=== PATIENT | female | born 1930 | race Caucasian/White ===

== ENCOUNTER 2017-01-29 09:44 | Emergency (ER) | payer OTHER, BC ==
--- NOTE | 2017-01-29 10:38 | DIAGNOSTIC IMAGING REPORT ---
PROCEDURE: XR ABDOMEN 1 VIEW INDICATION: NAUSEA TECHNIQUE: AP supine and upright views. COMPARISON: None. FINDINGS: Large hiatal hernia. Bowel pattern is normal. Soft tissues and osseous structures are normal. IMPRESSION: 1. Large right paramedian hiatal hernia.
--- NOTE | 2017-01-29 12:50 | ED NURSING NOTES ---
Clinical Report - Nurses [address] [place] [address] 01/29/2017 9:49 Patient: NEELAM DEAL TRIAGE Acuity: LEVEL 3. Chief Complaint: NAUSEA. Alert. No acute distress. SEPSIS SCREEN: Sepsis Screen. Negative (no infection suspected/documented). --10:08 Jaqui Farris R.N. 09:53 01/29/17. BP: 169/99. HR: 55. RR: 18. O2 saturation: 100%. Temp: 97.7 F (oral). Pain level now: 0/10. --10:08 Jaqui Farris R.N. Weight: 74.8 kg estimated. Height/Length: 66 inches Estimated. BMI: 26.6. --10:02 Jaqui Farris R.N. Medications Metoprolol Tartrate Oral 50 mg, daily. --09:54 Jaqui Farris R.N. Clopidogrel Bisulfate Oral 75 mg, daily. --09:55 Jaqui Farris R.N. Ferrous Sulfate Oral. --09:55 Jaqui Farris R.N. Simvastatin Oral 10 mg, at bedtime. --09:55 Jaqui Farris R.N. Lisinopril Oral 2.5 mg, 2x a day. --09:55 Jaqui Farris R.N. Montelukast Sodium Oral 10 mg, daily. --09:55 Jaqui Farris R.N. Aspirin Oral (Tablet 325 mg). --09:56 Jaqui Farris R.N. Medication/allergy information source: the patient's senior care record. --10:08 Jaqui Farris R.N. Allergies No Known Drug Allergy. --09:56 Jaqui Farris R.N. History Arrived by EMS. Historian: patient. Unaccompanied. Primary physician (Habib at [facility]). Onset. (2 days ago). No vomiting, constipation, abdominal pain or fever. Last oral intake by patient was breakfast. Treatment APPEALS MANAGER: None. EMS treatment APPEALS MANAGER verbally communicated. Finger stick glucose performed (95). BP: 134/92. HR: 60. RR: 18. Temp: 96.9. O2 saturation: 96 room air. PAST MEDICAL HX: The patient has had a hysterectomy. SOCIAL HX: Former smoker, end date 2001. Occasional alcohol use. No drug use. No recent travel. NUTRITIONAL RISK ASSESSMENT: The nutritional risk assessment revealed no deficiencies. LEARNING NEEDS ASSESSMENT: The learning needs assessment revealed no barriers. FALL RISK ASSESSMENT: Fall risk assessment completed. Risk factors identified include patient age greater than 65 years. Fall interventions initiated. Side rails up x2. Brakes on Bed in low position. Call light in reach of patient. FUNCTIONAL ASSESSMENT: Functional assessment performed: independent with the activities of daily living; uses walker- this mobility impairment is an ongoing problem; has poor vision in both eyes- this visual impairment is an ongoing problem. SKIN INTEGRITY ASSESSMENT: Skin integrity risk assessment completed. No skin integrity risk identified. --10:08 Jaqui Farris R.N. PROBLEMS: Hypertension. --10:06 Jaqui Farris R.N. ADDITIONAL SURGERIES: Heart surgery. --10:00 Jaqui Farris R.N. Hysterectomy. --10:06 Jaqui Farris R.N. Assessment GENERAL / NEURO / PSYCH: Alert. Oriented X 4. Appears in no acute distress. Bertrand Coma Scale: 15- eyes open spontaneously (4); best verbal response- oriented x 4 (5); best motor response- obeys commands (6). Patient appears calm and cooperative. RESPIRATORY: Respirations not labored. CVS: Capillary refill less than 2 seconds. GI / : Abdomen soft and nontender. SKIN: Mucous membranes are pink. Skin is warm and dry. --10:08 Jaqui Farris R.N. Interventions ID band on patient. To treatment room. --10:08 Jaqui Farris R.N. PHYSICAL ASSESSMENT 10:09 01/29/17. To room via stretcher. GENERAL / NEURO / PSYCH: Alert. Oriented X 4. Appears in no acute distress. HEENT: Mucous membranes are pink. RESPIRATORY: Respirations not labored. CVS: Capillary refill less than 2 seconds. GI / : Abdomen soft and nontender. SKIN: Skin is warm and dry. --10:09 Jaqui Farris R.N. NURSING PROGRESS NOTES Patient gowned. Two patient identifiers checked. Checked patient name and birthdate: patient confirmed. Call light placed in reach. Side rails up x 2. Patient ready for evaluation- chart flagged and ED physician notified. --10:09 Jaqui Farris R.N. 10:41 01/29/2017 Site #1 started via IV in the right antecubital space with an 22g angiocath, with aseptic technique and good blood return; one attempt. Saline lock flushed with 10 mL saline. --10:41 Jaqui Farris R.N. 11:05 01/29/17. In/out catheterization. During procedure hand hygiene observed and sterile equipment and aseptic technique used. Return of yellow-colored cloudy urine. She tolerated procedure well. --11:05 Jaqui Farris R.N. 11:01/29/17. Checked patient name and birthdate: patient confirmed. Catheterized urine collected; sample sent to lab for urinalysis. Specimen labeled in the presence of the patient. --11:05 Jaqui Farris R.N. 11:31 01/29/2017 Zofran (Ondansetron HCl) IVP 4 mg given. via site #1. Allergies verified and confirmed 5 rights. IV patency established. IV site checked: no pain, redness, or swelling. IV flushed thoroughly pre- and post-medication administration. --11:31 Luis Enrique Trores R.N. Assisted patient to bathroom, to ambulate and back to bed; tolerated well. --12:33 Tom Vicente R.N. DISPOSITION / DISCHARGE Departure time: 13:Jan 29 2017. Condition at departure: improved and stable. No learning barriers present. Discharge instructions provided and reviewed with the patient (daughter). Reviewed medication(s) side effects, precautions and dosing information (given to Pt's daughter). Verbalized understanding. Written instructions provided in Uzbek. Verbalized understanding (daughter). The patient was discharged by the physician. She was discharged home and accompanied by daughter. She left the Emergency Department ambulatory and via private vehicle. Driving (daughter). --13:24 Jaqui Farris R.N. 13:21 01/29/17. BP: 105/50. HR: 56. RR: 16. O2 saturation: 100% on room air. Pain level now unable to obtain. --13:24 Jaqui Farris R.N. 13:09 01/29/2017 Site #1 removed upon discharge. Catheter intact. Manual pressure and bandage applied. --13:24 Jaqui Farris R.N. Locked/Released at 01/29/2017 13:25 by Jaqui Farris R.N.
--- NOTE | 2017-01-29 12:50 | ED CLINICAL REPORT ---
Clinical Report - Physicians/Mid Levels [facility] [address] [place] [place] [address] 01/29/2017 9:49 Patient: NEELAM DEAL Time Seen: 10:06. Arrived- By ambulance. Historian- patient and EMS personnel. History limited by vague historian, confusion and dementia. Physical Exam limited by confusion and dementia. HISTORY OF PRESENT ILLNESS Chief Complaint: NAUSEA constipation. This started 2 days ago and is still present. It was gradual in onset and has been constant and waxing/waning. The patient has had nausea and constipation. No vomiting, diarrhea, abdominal pain, flank pain or history of possible bad food exposure. Has not recently been on antibiotics. Last bowel movement: yesterday. The illness is described as moderate. REVIEW OF SYSTEMS No fatigue, fever, sweats, calf pain or chest pain. No cough, difficulty breathing, pedal edema, palpitations or abdominal pain. No black stools, bloody stools, diarrhea, vomiting or urinary problems. The patient has had nausea. All systems otherwise negative, except as recorded above. PAST HISTORY Primary physician (Habib at [facility]). Problems: Dementia. Hypertension. Additional Surgeries: Heart surgery. Hysterectomy. Medications: Aspirin Oral (Tablet 325 mg). Montelukast Sodium Oral 10 mg, daily. Lisinopril Oral 2.5 mg, 2x a day. Simvastatin Oral 10 mg, at bedtime. Ferrous Sulfate Oral. Clopidogrel Bisulfate Oral 75 mg, daily. Metoprolol Tartrate Oral 50 mg, daily. Allergies: No Known Drug Allergy. SOCIAL HISTORY Smoker- current status unknown. Occasional alcohol use. No drug use. FAMILY HISTORY Denies family medical history. ADDITIONAL NOTES The nursing notes have been reviewed. PHYSICAL EXAM Vital Signs: Have been reviewed. Appearance: Alert. She is confused and cooperative and appears comfortable. Eyes: Pupils equal, round and reactive to light. ENT: Pharynx normal. Neck: Normal inspection. Neck supple. No meningeal signs or JVD. CVS: Normal heart rate and rhythm. 2/6 systolic murmur. Respiratory: No respiratory distress. Breath sounds normal. Abdomen: Soft and nontender. Bowel sounds normal. No organomegaly. No mass. Back: Normal inspection. No CVA tenderness. Skin: Skin warm and dry. Normal skin color. Normal skin turgor. Extremities: Extremities exhibit normal ROM. No calf tenderness. No lower extremity edema. Neuro: Moderately altered mental status: confused. LABS, X-RAYS, AND EKG KUB: (IMPRESSION: 1. Large right paramedian hiatal hernia.). The X-rays were interpreted by the radiologist and contemporaneously by me. Laboratory Tests: UA-Culture if indicated: (ARACELIS: 01/29/2017 11:00) ( MsgRcvd 01/29/2017 11:30) Final results Test Result Flag Units (Reference) URINE COLOR YELLOW URINE APPEARANCE CLOUDY URINE GLUCOSE NEGATIVE (NEGATIVE) URINE BILIRUBIN NEGATIVE (NEGATIVE) URINE KETONE NEGATIVE (NEGATIVE) URINE SPECIFIC GRAVITY 1.010 (1.010-1.030) URINE PH 6.0 (5.0-8.0) URINE PROTEIN NEGATIVE (NEGATIVE) URINE UROBILINOGEN 0.2 EU/dL (0.2-1.0) URINE NITRITE POSITIVE (NEGATIVE) URINE BLOOD TRACE-INTACT (NEGATIVE) URINE LEUK ESTERASE POSITIVE (NEGATIVE) URINE RBC 0-1 rbc/hpf (0-1) URINE WBC >100 wbc/hpf (0-1) URINE EPITHELIAL CELLS NONE SEEN EPI/hpf (0-5) URINE BACTERIA MANY (4+) (NONE SEEN) URINE COMMENT CULTURE INDICATED URINE CULTURES ARE SET-UP BASED ON THE FOLLOWING CRITERIA:POSITIVE NITRITEPOSITIVE LEUKOCYTE ESTERASEGREATER THAN 10 WHITE BLOOD CELLSMODERATE (2+) OR GREATER BACTERIA CBC w Diff: (ARACELIS: 01/29/2017 10:40) ( MsgRcvd 01/29/2017 10:55) Final results Test Result Flag Units (Reference) WHITE BLOOD COUNT 10.2 K/uL (4.5-11.5) RED BLOOD COUNT 5.68 H M/uL (4.00-5.20) HEMOGLOBIN 15.7 gm/dL (12.0-16.0) HEMATOCRIT 48.5 H % (36.0-46.0) MEAN CELL VOLUME 85 fL (80-100) MEAN CORPUSCULAR HGB 28 pg (26-34) MEAN CORPUSCULAR HGB CONC 33 g/dL (31-37) RED CELL DISTRIBUTION WIDTH 13.3 % (11.6-14.8) PLATELET COUNT 323 K/uL (150-400) LYMPH % 16.3 L % (25-40) MONO % 5.4 % (3-14) GRANULOCYTE % 78.3 (53-90) CMP: (ARACELIS: 01/29/2017 10:40) ( MsgRcvd 01/29/2017 11:48) Final results Test Result Flag Units (Reference) GLUCOSE 106 mg/dL (70-110) BUN 19 H mg/dL (7-18) CREATININE 1.1 mg/dL (0.6-1.3) Estimated GFR 50.17 mL/min Estimated GFR- >60 mL/min Note: Persistent reduction over 3 months in eGFR<60 mL/min/1.73 m2 defines CKD. Patients with eGFR values>=60 mL/min/1.73 m2 may also have CKD if evidence ofpersistent proteinuria. Additional information may be foundat www.kidney.org. SODIUM 132 L mmol/L (136-145) POTASSIUM 4.6 mmol/L (3.5-5.1) CHLORIDE 96 L mmol/L (98-107) CARBON DIOXIDE 27 mmol/L (21-32) CALCIUM 9.0 mg/dL (8.5-10.1) TOTAL PROTEIN 7.9 g/dL (6.4-8.2) ALBUMIN 3.9 g/dL (3.3-5.0) BILIRUBIN, TOTAL 1.0 mg/dL (0.0-1.0) ALKALINE PHOSPHATASE 92 U/L (46-116) AST (SGOT) 17 U/L (15-37) ALT (SGPT) 16 U/L (12-78) LIPASE 101 U/L (73-393) AMYLASE 45 U/L (25-115) . PROGRESS AND PROCEDURES Patient/family counseled. Old medical records ordered. Old records unavailable. Disposition: Discharged. Condition: stable. CLINICAL IMPRESSION Hiatal hernia. Acute urinary tract infection with cystitis. INSTRUCTIONS Drink plenty of fluids. Warnings: Further evaluation is necessary. GENERAL WARNINGS: Return or contact your physician immediately if your condition worsens or changes unexpectedly, if not improving as expected, or if other problems arise. Your Current Medications: CONTINUE TAKING THE FOLLOWING MEDICATIONS: Aspirin Oral : Tablet 325 mg. Clopidogrel Bisulfate Oral : 75 mg daily. Ferrous Sulfate Oral. Lisinopril Oral : 2.5 mg 2x a day. Metoprolol Tartrate Oral : 50 mg daily. Montelukast Sodium Oral : 10 mg daily. Simvastatin Oral : 10 mg at bedtime. Prescription Medications: Zofran 4 mg: Take 1 orally every six hours as needed for nausea/vomiting. Dispense ten (10). No refills. Substitution is permissible. Macrobid 100 mg: Take 1 capsule orally every 12 hours for 7 days. No refills. Substitution is permissible. Understanding of the discharge instructions verbalized by patient. (Electronically signed by Walt Crawford MD 01/29/2017 13:30)
--- NOTE | 2017-01-29 12:50 | ED ORDER SUMMARY ---
..... Patient: NEELAM DEAL OrderSheet [facility] VisitID: [id number] [place] [address] 86y, F Registration Date/Time: 01/29/2017 ORDER SHEET Weight: 74.8 kg (estimated) Allergies: No Known Drug Allergy GENERAL ORDERS: Abdomen 1V Urgent (10:05 01/29/2017 Brandon MARTINEZ) (Ack 10:07 Alix ER Tech1) (10:22 MWinterer R.N.) CBC w Diff Urgent (10:01/29/2017 Brandon MARTINEZ) (Ack 10:07 Alix Rodas) (10:57 MWinterer R.N.) CMP Urgent (10:01/29/2017 Brandon MARTINEZ) (Ack 10:07 Alix Rodas) (10:57 MWinterer R.N.) UA-Culture if indicated Urgent (10:01/29/2017 Brandon MARTINEZ) (Ack 10:07 Alix Rodas) (11:04 MWinterer R.N.) Amylase Urgent (10:01/29/2017 Brandon MARTINEZ) (Ack 10:07 Alix Rodas) (10:57 MWinterer R.N.) Lipase Urgent (10:01/29/2017 Brandon MARTINEZ) (Ack 10:07 Alix Rodas) (10:57 MWinterer R.N.) MEDICATION ORDERS: IV FLUIDS: IV Saline Lock (10:06 01/29/2017 Brandon MARTINEZ) (Ack 10:09 MWinterer R.N.) (10:41 MWinterer R.N.) Zofran IV 4 mg (NOW) (11:23 01/29/2017 Brandon MARTINEZ) (Ack 11:27 KPadeng-Kuchan R.N.) (11:31 KPadeng-Aminan R.N.) ORDER SHEET NOTES: [Electronically signed by Jaqui Farris R.N. (13:25 01/29/2017)] [Electronically signed by Walt Crawford MD (13:30 01/29/2017)] [Electronically locked/signed by Jaqui Farris R.N. (13:25 01/29/2017)]
--- NOTE | 2017-01-29 12:50 | ED ORDER SUMMARY ---
..... Patient: NEELAM DEAL OrderSheet [facility] VisitID: [id number] [place] [address] 86y, F Registration Date/Time: 01/29/2017 ORDER SHEET Weight: 74.8 kg (estimated) Allergies: No Known Drug Allergy GENERAL ORDERS: Abdomen 1V Urgent (10:05 01/29/2017 Brandon MARTINEZ) (Ack 10:07 Alix ER Tech1) (10:22 MWinterer R.N.) CBC w Diff Urgent (10:01/29/2017 Brandon MARTINEZ) (Ack 10:07 Alix Rodas) (10:57 MWinterer R.N.) CMP Urgent (10:01/29/2017 Brandon MARTINEZ) (Ack 10:07 Alix Rodas) (10:57 MWinterer R.N.) UA-Culture if indicated Urgent (10:01/29/2017 Brandon MARTINEZ) (Ack 10:07 Alix Rodas) (11:04 MWinterer R.N.) Amylase Urgent (10:01/29/2017 Brandon MARTINEZ) (Ack 10:07 Alix Rodas) (10:57 MWinterer R.N.) Lipase Urgent (10:01/29/2017 Brandon MARTINEZ) (Ack 10:07 Alix Rodas) (10:57 MWinterer R.N.) MEDICATION ORDERS: IV FLUIDS: IV Saline Lock (10:06 01/29/2017 Brandon MARTINEZ) (Ack 10:09 MWinterer R.N.) (10:41 MWinterer R.N.) Zofran IV 4 mg (NOW) (11:23 01/29/2017 Brandon MARTINEZ) (Ack 11:27 KPadeng-Kuchan R.N.) (11:31 KPadeng-Aminan R.N.) ORDER SHEET NOTES: [Electronically signed by Jaqui Farris R.N. (13:25 01/29/2017)] [Electronically signed by Walt Crawford MD (13:30 01/29/2017)] [Electronically locked/signed by Jaqui Fraris R.N. (13:25 01/29/2017)]
--- NOTE | 2017-01-29 12:50 | ED NURSING NOTES ---
Clinical Report - Nurses [address] [place] [address] 01/29/2017 9:49 Patient: NEELAM DEAL TRIAGE Acuity: LEVEL 3. Chief Complaint: NAUSEA. Alert. No acute distress. SEPSIS SCREEN: Sepsis Screen. Negative (no infection suspected/documented). --10:08 Jaqui Farris R.N. 09:53 01/29/17. BP: 169/99. HR: 55. RR: 18. O2 saturation: 100%. Temp: 97.7 F (oral). Pain level now: 0/10. --10:08 Jaqui Farris R.N. Weight: 74.8 kg estimated. Height/Length: 66 inches Estimated. BMI: 26.6. --10:02 Jaqui Farris R.N. Medications Metoprolol Tartrate Oral 50 mg, daily. --09:54 Jaqui Farris R.N. Clopidogrel Bisulfate Oral 75 mg, daily. --09:55 Jaqui Farris R.N. Ferrous Sulfate Oral. --09:55 Jaqui Farris R.N. Simvastatin Oral 10 mg, at bedtime. --09:55 Jaqui Farris R.N. Lisinopril Oral 2.5 mg, 2x a day. --09:55 Jaqui Farris R.N. Montelukast Sodium Oral 10 mg, daily. --09:55 Jaqui Farris R.N. Aspirin Oral (Tablet 325 mg). --09:56 Jaqui Farris R.N. Medication/allergy information source: the patient's [facility] record. --10:08 Jaqui Farris R.N. Allergies No Known Drug Allergy. --09:56 Jaqui Farris R.N. History Arrived by EMS. Historian: patient. Unaccompanied. Primary physician (Habib at [facility]). Onset. (2 days ago). No vomiting, constipation, abdominal pain or fever. Last oral intake by patient was breakfast. Treatment IS TECHNICIAN: None. EMS treatment IS TECHNICIAN verbally communicated. Finger stick glucose performed (95). BP: 134/92. HR: 60. RR: 18. Temp: 96.9. O2 saturation: 96 room air. PAST MEDICAL HX: The patient has had a hysterectomy. SOCIAL HX: Former smoker, end date 2001. Occasional alcohol use. No drug use. No recent travel. NUTRITIONAL RISK ASSESSMENT: The nutritional risk assessment revealed no deficiencies. LEARNING NEEDS ASSESSMENT: The learning needs assessment revealed no barriers. FALL RISK ASSESSMENT: Fall risk assessment completed. Risk factors identified include patient age greater than 65 years. Fall interventions initiated. Side rails up x2. Brakes on Bed in low position. Call light in reach of patient. FUNCTIONAL ASSESSMENT: Functional assessment performed: independent with the activities of daily living; uses walker- this mobility impairment is an ongoing problem; has poor vision in both eyes- this visual impairment is an ongoing problem. SKIN INTEGRITY ASSESSMENT: Skin integrity risk assessment completed. No skin integrity risk identified. --10:08 Jaqui Farris R.N. PROBLEMS: Hypertension. --10:06 Jaqui Farris R.N. ADDITIONAL SURGERIES: Heart surgery. --10:00 Jaqui Farris R.N. Hysterectomy. --10:06 Jaqui Farris R.N. Assessment GENERAL / NEURO / PSYCH: Alert. Oriented X 4. Appears in no acute distress. Bertrand Coma Scale: 15- eyes open spontaneously (4); best verbal response- oriented x 4 (5); best motor response- obeys commands (6). Patient appears calm and cooperative. RESPIRATORY: Respirations not labored. CVS: Capillary refill less than 2 seconds. GI / : Abdomen soft and nontender. SKIN: Mucous membranes are pink. Skin is warm and dry. --10:08 Jaqui Farris R.N. Interventions ID band on patient. To treatment room. --10:08 Jaqui Farris R.N. PHYSICAL ASSESSMENT 10:09 01/29/17. To room via stretcher. GENERAL / NEURO / PSYCH: Alert. Oriented X 4. Appears in no acute distress. HEENT: Mucous membranes are pink. RESPIRATORY: Respirations not labored. CVS: Capillary refill less than 2 seconds. GI / : Abdomen soft and nontender. SKIN: Skin is warm and dry. --10:09 Jaqui Farris R.N. NURSING PROGRESS NOTES Patient gowned. Two patient identifiers checked. Checked patient name and birthdate: patient confirmed. Call light placed in reach. Side rails up x 2. Patient ready for evaluation- chart flagged and ED physician notified. --10:09 Jaqui Farris R.N. 10:41 01/29/2017 Site #1 started via IV in the right antecubital space with an 22g angiocath, with aseptic technique and good blood return; one attempt. Saline lock flushed with 10 mL saline. --10:41 Jaqui Farris R.N. 11:05 01/29/17. In/out catheterization. During procedure hand hygiene observed and sterile equipment and aseptic technique used. Return of yellow-colored cloudy urine. She tolerated procedure well. --11:05 Jaqui Farris R.N. 11:01/29/17. Checked patient name and birthdate: patient confirmed. Catheterized urine collected; sample sent to lab for urinalysis. Specimen labeled in the presence of the patient. --11:05 Jaqui Farris R.N. 11:31 01/29/2017 Zofran (Ondansetron HCl) IVP 4 mg given. via site #1. Allergies verified and confirmed 5 rights. IV patency established. IV site checked: no pain, redness, or swelling. IV flushed thoroughly pre- and post-medication administration. --11:31 Luis Enrique Torres R.N. Assisted patient to bathroom, to ambulate and back to bed; tolerated well. --12:33 Tom Vicente R.N. DISPOSITION / DISCHARGE Departure time: 13:Jan 29 2017. Condition at departure: improved and stable. No learning barriers present. Discharge instructions provided and reviewed with the patient (daughter). Reviewed medication(s) side effects, precautions and dosing information (given to Pt's daughter). Verbalized understanding. Written instructions provided in Divehi. Verbalized understanding (daughter). The patient was discharged by the physician. She was discharged home and accompanied by daughter. She left the Emergency Department ambulatory and via private vehicle. Driving (daughter). --13:24 Jaqui Farris R.N. 13:21 01/29/17. BP: 105/50. HR: 56. RR: 16. O2 saturation: 100% on room air. Pain level now unable to obtain. --13:24 Jaqui Farris R.N. 13:09 01/29/2017 Site #1 removed upon discharge. Catheter intact. Manual pressure and bandage applied. --13:24 Jaqui Farris R.N. Locked/Released at 01/29/2017 13:25 by Jaqui Farris R.N.
--- NOTE | 2017-01-29 13:31 | ED MAR SUMMARY ---
..... Medication Administration Record [facility] [address] [place] [place] [address] Patient: NEELAM DEAL Visit ID: [id number] 86y, F Weight: 74.8 kg Height/Length: 66 in BMI: 26.6 ALLERGIES: No Known Drug Allergy Given 11:31 01/29/2017 Luis Enrique Torres R.N. Medication Administered: ZOFRAN [IVP] (ONDANSETRON HCL), Dose: 4 mg IVP, Site: #1 right AC. Medication Ordered: Zofran IV 4 mg (NOW).
--- NOTE | 2017-01-29 13:31 | ED DISCHARGE INSTRUCTIONS ---
Patient: NEELAM DEAL General Instructions [facility] VisitID: [id number] [place] [address] 86y, F Registration Date/Time: 01/29/2017 Hiatal hernia. Acute urinary tract infection with cystitis. INSTRUCTIONS Drink plenty of fluids. Warnings: Further evaluation is necessary. GENERAL WARNINGS: Return or contact your physician immediately if your condition worsens or changes unexpectedly, if not improving as expected, or if other problems arise. Your Current Medications: CONTINUE TAKING THE FOLLOWING MEDICATIONS: Aspirin Oral : Tablet 325 mg. Clopidogrel Bisulfate Oral : 75 mg daily. Ferrous Sulfate Oral. Lisinopril Oral : 2.5 mg 2x a day. Metoprolol Tartrate Oral : 50 mg daily. Montelukast Sodium Oral : 10 mg daily. Simvastatin Oral : 10 mg at bedtime. Prescription Medications: Zofran 4 mg: Take 1 orally every six hours as needed for nausea/vomiting. Dispense ten (10). No refills. Substitution is permissible. Macrobid 100 mg: Take 1 capsule orally every 12 hours for 7 days. No refills. Substitution is permissible. Understanding of the discharge instructions verbalized by patient. ADDITIONAL INFORMATION Bladder Infection,Female (Adult) A bladder infection ("cystitis" or "UTI") usually causes a constant urge to urinate and a burning when passing urine. Urine may be cloudy, smelly or dark. There may be pain in the lower abdomen. A bladder infection occurs when bacteria from the vaginal area enter the bladder opening (urethra). This can occur from sexual intercourse, wearing tight clothing, dehydration and other factors. Home Care: Drink lots of fluids (at least 6-8 glasses a day, unless you must restrict fluids for other medical reasons). This will force the medicine into your urinary system and flush the bacteria out of your body. Avoid sexual intercourse until your symptoms are gone. Avoid caffeine, alcohol and spicy foods. These can irritate the bladder. A bladder infection is treated with antibiotics. You may also be given Pyridium (generic = phenazopyridine) to reduce the burning sensation. This medicine will cause your urine to become a bright orange color. The orange urine may stain clothing. You may wear a pad or panty-liner to protect clothing. Preventing Future Infections: Always wipe from front to back after a bowel movement. Keep the genital area clean and dry. Drink plenty of fluids each day to avoid dehydration. Both sexual partners should wash before intercourse. Urinate right after intercourse to flush out the bladder. Wear cotton underwear and cotton-lined panty hose; avoid tight-fitting pants. If you are on control pills and are having frequent bladder infections, discuss with your doctor. Follow Up: Return to this facility or see your doctor if ALL symptoms are not gone after three days of treatment. Get Prompt Medical Attention if any of the following occur: Fever of 100.4F (38C) or higher, or as directed by your healthcare provider No improvement by the third day of treatment Increasing back or abdominal pain Repeated vomiting; unable to keep medicine down Weakness, dizziness or fainting Vaginal discharge Pain, redness or swelling in the labia (outer vaginal area) Ondansetron Hydrochloride Oral tablet What is this medicine? ONDANSETRON (on LEXX se esthela) is used to treat nausea and vomiting caused by chemotherapy. It is also used to prevent or treat nausea and vomiting after surgery. How should I use this medicine? Take this medicine by mouth with a glass of water. Follow the directions on your prescription label. Take your doses at regular intervals. Do not take your medicine more often than directed. Talk to your director of home economics regarding the use of this medicine in children. Special care may be needed. What side effects may I notice from receiving this medicine? Side effects that you should report to your doctor or health home care scheduler as soon as possible: allergic reactions like skin rash, itching or hives, swelling of the face, lips or tongue breathing problems dizziness fast or irregular heartbeat feeling faint or lightheaded, falls fever and chills swelling of the hands or feet tightness in the chest Side effects that usually do not require medical attention (report to your doctor or health home care scheduler if they continue or are bothersome): constipation or diarrhea headache What may interact with this medicine? Do not take this medicine with any of the following medications: -apomorphine -cisapride -dofetilide -dronedarone -pimozide -thioridazine -ziprasidone This medicine may also interact with the following medications: -carbamazepine -phenytoin -rifampicin -tramadol -other medicines that prolong the QT interval (cause an abnormal heart rhythm) What if I miss a dose? If you miss a dose, take it as soon as you can. If it is almost time for your next dose, take only that dose. Do not take double or extra doses. Where should I keep my medicine? Keep out of the reach of children. Store between 2 and 30 degrees C (36 and 86 degrees F). Throw away any unused medicine after the expiration date. What should I tell my health care provider before I take this medicine? They need to know if you have any of these conditions: heart disease history of irregular heartbeat liver disease low levels of magnesium or potassium in the blood an unusual or allergic reaction to ondansetron, granisetron, other medicines, foods, dyes, or preservatives or trying to get breast-feeding What should I watch for while using this medicine? Check with your doctor or health home care scheduler right away if you have any sign of an allergic reaction. Nitrofurantoin, Nitrofurantoin, Macrocrystalline Oral capsule What is this medicine? NITROFURANTOIN (louie MONTGOMERY toyaudrey) is an antibiotic. It is used to treat urinary tract infections. How should I use this medicine? Take this medicine by mouth with a glass of water. Follow the directions on the prescription label. Take this medicine with food or milk. Take your doses at regular intervals. Do not take your medicine more often than directed. Do not stop taking except on your doctor's advice. Talk to your director of home economics regarding the use of this medicine in children. While this drug may be prescribed for selected conditions, precautions do apply. What side effects may I notice from receiving this medicine? Side effects that you should report to your doctor or health home care scheduler as soon as possible: allergic reactions like skin rash or hives, swelling of the face, lips, or tongue chest pain cough difficulty breathing dizziness, drowsiness fever or infection joint aches or pains pale or blue-tinted skin redness, blistering, peeling or loosening of the skin, including inside the mouth tingling, burning, pain, or numbness in hands or feet unusual bleeding or bruising unusually weak or tired yellowing of eyes or skin Side effects that usually do not require medical attention (report to your doctor or health home care scheduler if they continue or are bothersome): dark urine diarrhea headache loss of appetite nausea or vomiting temporary hair loss What may interact with this medicine? antacids containing magnesium trisilicate probenecid quinolone antibiotics like ciprofloxacin, lomefloxacin, norfloxacin and ofloxacin sulfinpyrazone What if I miss a dose? If you miss a dose, take it as soon as you can. If it is almost time for your next dose, take only that dose. Do not take double or extra doses. Where should I keep my medicine? Keep out of the reach of children. Store at room temperature between 15 and 30 degrees C (59 and 86 degrees F). Protect from light. Throw away any unused medicine after the expiration date. What should I tell my health care provider before I take this medicine? They need to know if you have any of these conditions: anemia diabetes vhvdvdv-[id number] dehydrogenase deficiency kidney disease liver disease lung disease other chronic illness an unusual or allergic reaction to nitrofurantoin, other antibiotics, other medicines, foods, dyes or preservatives or trying to get breast-feeding What should I watch for while using this medicine? Tell your doctor or health home care scheduler if your symptoms do not improve or if you get new symptoms. Drink several glasses of water a day. If you are taking this medicine for a long time, visit your doctor for regular checks on your progress. If you are diabetic, you may get a false positive result for sugar in your urine with certain brands of urine tests. Check with your doctor. You have been given the following additional information: Bladder Infection, Female (Adult) Ondansetron Hydrochloride Oral tablet Nitrofurantoin, Nitrofurantoin, Macrocrystalline Oral capsule (Electronically signed by Walt Crawford MD 01/29/2017 13:30)
--- NOTE | 2017-01-29 13:31 | ED DISCHARGE INSTRUCTIONS ---
Patient: NEELAM DEAL General Instructions [facility] VisitID: [id number] [place] [address] 86y, F Registration Date/Time: 01/29/2017 Hiatal hernia. Acute urinary tract infection with cystitis. INSTRUCTIONS Drink plenty of fluids. Warnings: Further evaluation is necessary. GENERAL WARNINGS: Return or contact your physician immediately if your condition worsens or changes unexpectedly, if not improving as expected, or if other problems arise. Your Current Medications: CONTINUE TAKING THE FOLLOWING MEDICATIONS: Aspirin Oral : Tablet 325 mg. Clopidogrel Bisulfate Oral : 75 mg daily. Ferrous Sulfate Oral. Lisinopril Oral : 2.5 mg 2x a day. Metoprolol Tartrate Oral : 50 mg daily. Montelukast Sodium Oral : 10 mg daily. Simvastatin Oral : 10 mg at bedtime. Prescription Medications: Zofran 4 mg: Take 1 orally every six hours as needed for nausea/vomiting. Dispense ten (10). No refills. Substitution is permissible. Macrobid 100 mg: Take 1 capsule orally every 12 hours for 7 days. No refills. Substitution is permissible. Understanding of the discharge instructions verbalized by patient. ADDITIONAL INFORMATION Bladder Infection,Female (Adult) A bladder infection ("cystitis" or "UTI") usually causes a constant urge to urinate and a burning when passing urine. Urine may be cloudy, smelly or dark. There may be pain in the lower abdomen. A bladder infection occurs when bacteria from the vaginal area enter the bladder opening (urethra). This can occur from sexual intercourse, wearing tight clothing, dehydration and other factors. Home Care: Drink lots of fluids (at least 6-8 glasses a day, unless you must restrict fluids for other medical reasons). This will force the medicine into your urinary system and flush the bacteria out of your body. Avoid sexual intercourse until your symptoms are gone. Avoid caffeine, alcohol and spicy foods. These can irritate the bladder. A bladder infection is treated with antibiotics. You may also be given Pyridium (generic = phenazopyridine) to reduce the burning sensation. This medicine will cause your urine to become a bright orange color. The orange urine may stain clothing. You may wear a pad or panty-liner to protect clothing. Preventing Future Infections: Always wipe from front to back after a bowel movement. Keep the genital area clean and dry. Drink plenty of fluids each day to avoid dehydration. Both sexual partners should wash before intercourse. Urinate right after intercourse to flush out the bladder. Wear cotton underwear and cotton-lined panty hose; avoid tight-fitting pants. If you are on control pills and are having frequent bladder infections, discuss with your doctor. Follow Up: Return to this facility or see your doctor if ALL symptoms are not gone after three days of treatment. Get Prompt Medical Attention if any of the following occur: Fever of 100.4F (38C) or higher, or as directed by your healthcare provider No improvement by the third day of treatment Increasing back or abdominal pain Repeated vomiting; unable to keep medicine down Weakness, dizziness or fainting Vaginal discharge Pain, redness or swelling in the labia (outer vaginal area) Ondansetron Hydrochloride Oral tablet What is this medicine? ONDANSETRON (on LEXX se esthela) is used to treat nausea and vomiting caused by chemotherapy. It is also used to prevent or treat nausea and vomiting after surgery. How should I use this medicine? Take this medicine by mouth with a glass of water. Follow the directions on your prescription label. Take your doses at regular intervals. Do not take your medicine more often than directed. Talk to your surveillance monitor regarding the use of this medicine in children. Special care may be needed. What side effects may I notice from receiving this medicine? Side effects that you should report to your doctor or health day care home mother as soon as possible: allergic reactions like skin rash, itching or hives, swelling of the face, lips or tongue breathing problems dizziness fast or irregular heartbeat feeling faint or lightheaded, falls fever and chills swelling of the hands or feet tightness in the chest Side effects that usually do not require medical attention (report to your doctor or health day care home mother if they continue or are bothersome): constipation or diarrhea headache What may interact with this medicine? Do not take this medicine with any of the following medications: -apomorphine -cisapride -dofetilide -dronedarone -pimozide -thioridazine -ziprasidone This medicine may also interact with the following medications: -carbamazepine -phenytoin -rifampicin -tramadol -other medicines that prolong the QT interval (cause an abnormal heart rhythm) What if I miss a dose? If you miss a dose, take it as soon as you can. If it is almost time for your next dose, take only that dose. Do not take double or extra doses. Where should I keep my medicine? Keep out of the reach of children. Store between 2 and 30 degrees C (36 and 86 degrees F). Throw away any unused medicine after the expiration date. What should I tell my health care provider before I take this medicine? They need to know if you have any of these conditions: heart disease history of irregular heartbeat liver disease low levels of magnesium or potassium in the blood an unusual or allergic reaction to ondansetron, granisetron, other medicines, foods, dyes, or preservatives or trying to get breast-feeding What should I watch for while using this medicine? Check with your doctor or health day care home mother right away if you have any sign of an allergic reaction. Nitrofurantoin, Nitrofurantoin, Macrocrystalline Oral capsule What is this medicine? NITROFURANTOIN (louie MONTGOMERY toyaudrey) is an antibiotic. It is used to treat urinary tract infections. How should I use this medicine? Take this medicine by mouth with a glass of water. Follow the directions on the prescription label. Take this medicine with food or milk. Take your doses at regular intervals. Do not take your medicine more often than directed. Do not stop taking except on your doctor's advice. Talk to your surveillance monitor regarding the use of this medicine in children. While this drug may be prescribed for selected conditions, precautions do apply. What side effects may I notice from receiving this medicine? Side effects that you should report to your doctor or health day care home mother as soon as possible: allergic reactions like skin rash or hives, swelling of the face, lips, or tongue chest pain cough difficulty breathing dizziness, drowsiness fever or infection joint aches or pains pale or blue-tinted skin redness, blistering, peeling or loosening of the skin, including inside the mouth tingling, burning, pain, or numbness in hands or feet unusual bleeding or bruising unusually weak or tired yellowing of eyes or skin Side effects that usually do not require medical attention (report to your doctor or health day care home mother if they continue or are bothersome): dark urine diarrhea headache loss of appetite nausea or vomiting temporary hair loss What may interact with this medicine? antacids containing magnesium trisilicate probenecid quinolone antibiotics like ciprofloxacin, lomefloxacin, norfloxacin and ofloxacin sulfinpyrazone What if I miss a dose? If you miss a dose, take it as soon as you can. If it is almost time for your next dose, take only that dose. Do not take double or extra doses. Where should I keep my medicine? Keep out of the reach of children. Store at room temperature between 15 and 30 degrees C (59 and 86 degrees F). Protect from light. Throw away any unused medicine after the expiration date. What should I tell my health care provider before I take this medicine? They need to know if you have any of these conditions: anemia diabetes sugpmmk-4-hkhnhslpe dehydrogenase deficiency kidney disease liver disease lung disease other chronic illness an unusual or allergic reaction to nitrofurantoin, other antibiotics, other medicines, foods, dyes or preservatives or trying to get breast-feeding What should I watch for while using this medicine? Tell your doctor or health day care home mother if your symptoms do not improve or if you get new symptoms. Drink several glasses of water a day. If you are taking this medicine for a long time, visit your doctor for regular checks on your progress. If you are diabetic, you may get a false positive result for sugar in your urine with certain brands of urine tests. Check with your doctor. You have been given the following additional information: Bladder Infection, Female (Adult) Ondansetron Hydrochloride Oral tablet Nitrofurantoin, Nitrofurantoin, Macrocrystalline Oral capsule (Electronically signed by Walt Crawford MD 01/29/2017 13:30)
--- NOTE | 2017-01-29 13:31 | ED MAR SUMMARY ---
..... Medication Administration Record [facility] [address] [place] [address] Patient: NEELAM DEAL Visit ID: [id number] 86y, F Weight: 74.8 kg Height/Length: 66 in BMI: 26.6 ALLERGIES: No Known Drug Allergy Given 11:31 01/29/2017 Luis Enrique Torres R.N. Medication Administered: ZOFRAN [IVP] (ONDANSETRON HCL), Dose: 4 mg IVP, Site: #1 right AC. Medication Ordered: Zofran IV 4 mg (NOW).
--- NOTE | 2017-01-29 13:31 | ED MED RECONCILIATION SUMMARY ---
Patient: NEELAM DEAL Medication Reconciliation Report [facility] VisitID: [id number] [place] [address] 86y, F Registration Date/Time: 01/29/2017 Weight: 74.8 kg Height/Length: 66 in. BMI: 26.6 ALLERGIES: No Known Drug Allergy The patient's Home Medications are listed below: CONTINUE TAKING THE FOLLOWING MEDICATIONS: Aspirin Oral (325 mg) Clopidogrel Bisulfate Oral 75 mg, daily Ferrous Sulfate Oral Lisinopril Oral 2.5 mg, 2x a day Metoprolol Tartrate Oral 50 mg, daily Montelukast Sodium Oral 10 mg, daily Simvastatin Oral 10 mg, at bedtime The source(s) of the original Home Medication information: patient's intermediate record The following Medications were given to the patient in the Emergency Department: Zofran [IVP] IVP 4 mg, administered: 01/29/2017 11:31:00 AM The following Medications were prescribed to the patient: Zofran 4 mg: Take 1 orally every six hours as needed for nausea/vomiting. Dispense ten (10). No refills. Substitution is permissible. -- Walt Crawford MD Macrobid 100 mg: Take 1 capsule orally every 12 hours for 7 days. No refills. Substitution is permissible. -- Walt Crawford MD
--- NOTE | 2017-01-29 13:31 | ED MED RECONCILIATION SUMMARY ---
Patient: NEELAM DEAL Medication Reconciliation Report [facility] VisitID: [id number] [place] [address] 86y, F Registration Date/Time: 01/29/2017 Weight: 74.8 kg Height/Length: 66 in. BMI: 26.6 ALLERGIES: No Known Drug Allergy The patient's Home Medications are listed below: CONTINUE TAKING THE FOLLOWING MEDICATIONS: Aspirin Oral (325 mg) Clopidogrel Bisulfate Oral 75 mg, daily Ferrous Sulfate Oral Lisinopril Oral 2.5 mg, 2x a day Metoprolol Tartrate Oral 50 mg, daily Montelukast Sodium Oral 10 mg, daily Simvastatin Oral 10 mg, at bedtime The source(s) of the original Home Medication information: patient's correction record The following Medications were given to the patient in the Emergency Department: Zofran [IVP] IVP 4 mg, administered: 01/29/2017 11:31:00 AM The following Medications were prescribed to the patient: Zofran 4 mg: Take 1 orally every six hours as needed for nausea/vomiting. Dispense ten (10). No refills. Substitution is permissible. -- Walt Crawford MD Macrobid 100 mg: Take 1 capsule orally every 12 hours for 7 days. No refills. Substitution is permissible. -- Walt Crawford MD
== END 2017-01-29 13:10 | disposition home or self-care (01) ==
LOC: ED SRH 09:44
DX: K44.9 Diaphragmatic hernia without obstruction or gangrene (principal); N30.90 Cystitis, unspecified without hematuria; I10 Essential (primary) hypertension; Z79.899 Other long term (current) drug therapy; Z79.82 Long term (current) use of aspirin
CPT/HCPCS: 81460; 90004; 90100; 90148; 90469; 92235; 92530; 95059